=== PATIENT | male | born 2000 | race African-American/Black ===

== ENCOUNTER 2023-10-12 22:00 | Emergency (ER) | payer SELFPAY ==
[~2023-10-12] VITALS: Ht 188 cm; Wt 72.7 kg
[2023-10-12 22:18] VITALS: TEMP 98.4
[2023-10-12] MEDS ORDERED: Ketorolac 30 MG/ML VIAL IV ONE (22:30)
[2023-10-12] MEDS ORDERED: NS 1,000 ML IV ONE (22:30)
[2023-10-12] MEDS ORDERED: Iohexol 300 - 100 ML VIAL IV ONE (22:43)
[2023-10-12] MEDS ORDERED: NS 50 ML IV SCH (22:43)
[2023-10-12 22:44] LABS: HEMATOCRIT 41.5 % (42.0-52.0); HEMOGLOBIN 13.8 g/dl (13.5-18.0); MEAN CELL VOLUME 89 fl (80.0-100.0); MEAN CORPUSCULAR HEMOGLOBIN 30 pg (27-31); MEAN CORPUSCULAR HGB CONC 33 g/dl (33.0-37.0); MEAN PLATELET VOLUME 12.4 fl (7.4-10.4); PLATELET COUNT 186 K/mm3 (130-400); RED BLOOD COUNT 4.67 M/mm3 (4.20-5.60); REDCELL DISTRIBUTION WIDTH-CV 12.7 % (11.5-14.5)
[2023-10-12] MEDS ORDERED: Morphine 4 MG/ML VIAL IV ONE (23:00)
[2023-10-12] MEDS ORDERED: Cyclobenzaprine 10 MG TAB PO ONE (23:00)
[2023-10-12] MEDS ORDERED: Home Cyclobenzaprine 10 MG #2 TABS/PACK PO ONE (23:00)
[2023-10-12 23:01] LABS: ALBUMIN 4.2 gm/dL (3.5-5.0); BILIRUBIN,TOTAL 0.5 mg/dL (0.2-1.2); CALCIUM 10.1 mg/dL (8.4-10.2); CREATININE, serum 0.85 mg/dL (0.72-1.25); POTASSIUM 3.9 mmol/L (3.5-4.5); TOTAL PROTEIN 7.4 gm/dL (6.2-8.1)
[2023-10-12] MEDS ORDERED: FLEXERIL 1010 MG/TAB PO (23:07)
[2023-10-12 23:31] LABS: LYMPHOCYTE 22 % (20.0-51.0); NEUTROPHILS 71 % (42.0-75.2); PLATELET ESTIMATE NORMAL (NORMAL)
[2023-10-12 23:54] VITALS: BP 118/57; PULSE 58
== END 2023-10-12 23:54 | disposition home or self-care (01) ==
LOC: COL.ER 22:00
PROVIDERS: Emergency Medicine
DX: S39.012A Strain of muscle, fascia and tendon of lower back, initial encounter (principal); S29.012A Strain of muscle and tendon of back wall of thorax, initial encounter; S16.1XXA Strain of muscle, fascia and tendon at neck level, initial encounter; V47.5XXA Car driver injured in collision with fixed or stationary object in traffic accident, initial encounter; Y92.410 Unspecified street and highway as the place of occurrence of the external cause
CPT/HCPCS: J2270; J7030; Q9967